=== PATIENT | male | born 1960 | race Caucasian/White ===

== ENCOUNTER 2021-03-06 11:33 | Emergency (ER) | payer OTHER ==
[2021-03-06] MEDS ORDERED: Lidocaine 1% 30 ML SDV INJECT ONE (12:10)
[2021-03-06] MEDS ORDERED: Lidocaine 1% 30 ML SDV ONE (12:22)
--- NOTE | 2021-03-06 19:14 | EDM.PDOC ---
ED HPI GENERAL MEDICAL PROBLEM - General Chief Complaint: Laceration Time Seen by Provider: 03/06/21 11:51 Source of Information: Reports: Patient History Limitations: Reports: No Limitations - History of Present Illness INITIAL COMMENTS - FREE TEXT/NARRATIVE: Pt. states that he was reaching under his table saw when he sustained a laceration between the 2nd and 3rd MCP joints of R hand. Pt. states that this happened just prior to coming to the hospital. Tetanus is up to date. Denies any injury elsewhere. Denies any decreased ROM to the joints of the had. Denies any numbness/tingling distal to the area of injury. Onset: Today Onset Date: 03/06/21 Location: Reports: Upper Extremity, Right Improves with: Reports: Rest Worsens with: Reports: Movement - Related Data Allergies Allergy/AdvReac Type Severity Reaction Status Date / Time metronidazole Allergy Rash Verified 03/06/21 12:41 Home Meds: Home Meds lisinopriL [Lisinopril] 20 mg PO DAILY 03/06/21 [History] Past Medical History Cardiovascular History: Reports: Hypertension Social & Family History - Tobacco Use Tobacco Use Status *Q: Never Tobacco User ED ROS GENERAL - Review of Systems Review Of Systems: See Below Constitutional: Reports: No Symptoms HEENT: Reports: No Symptoms Respiratory: Reports: No Symptoms Cardiovascular: Reports: No Symptoms Endocrine: Reports: No Symptoms GI/Abdominal: Reports: No Symptoms : Reports: No Symptoms Musculoskeletal: Reports: Other (see HPI). Denies: Joint Pain Skin: Reports: Other (See HPI) Neurological: Denies: Numbness, Paresthesia Psychiatric: Reports: No Symptoms Hematologic/Lymphatic: Reports: No Symptoms Immunologic: Reports: No Symptoms ED EXAM, SKIN/RASH Exam: See Below Exam Limited By: No Limitations General Appearance: Alert, WD/WN, No Apparent Distress Extremities: Other (4.5 cm laceration between MCP joints of R hand. No obvious injury noted to underlying structures. No joint capsule injury noted.) ED SKIN PROCEDURES - Laceration/Wound Repair Right Dorsal Hand Appearance: Subcutaneous, Irregular, Mildly Contaminated Distal NVT: Neuro & Vascular Intact, No Tendon Injury Anesthetic Type: Local Local Anesthesia - Lidocaine (Xylocaine): 1% Plain Local Anesthetic Volume: 5cc Skin Prep: Chlorhexidine (Hibiciens), Saline Saline Irrigation (cc's): 1,000 Exploration/Debridement/Repair: Wound Explored, Moderate Debridement, Wound Margins Revised Closed with: Sutures Lac/Wound length In cm: 4.5 Suture Size: 4-0 # of Sutures: 6 Suture Type: Interrupted Suture Size: 4-0 # of Sutures: 1 Repaired with: Vicryl Course - Vital Signs Last Recorded V/S: Last Vital Signs Temp 36.9 C 03/06/21 11:37 Pulse 80 03/06/21 11:37 Resp 18 03/06/21 11:37 BP 116/81 03/06/21 11:37 Pulse Ox 96 03/06/21 11:37 - Orders/Labs/Meds Meds: Medications Discontinued Medications Generic Name Dose Route Start Last Admin Trade Name Frengozi PRN Reason Stop Dose Admin Lidocaine HCl 30 ml 03/06/21 12:10 03/06/21 12:15 Lidocaine 1% 30 Ml Sdv INJECT 03/06/21 12:11 30 ml ONETIME ONE Administration Lidocaine HCl Confirm 03/06/21 12:22 03/06/21 13:05 Lidocaine 1% 30 Ml Sdv Administered 03/06/21 12:23 Not Given Dose 30 ml .ROUTE .STK-MED ONE Departure - Departure Time of Disposition: 13:00 Disposition: Home, Self-Care 01 Clinical Impression: Laceration - Discharge Information Instructions: Laceration Care, Adult Referrals: Ines Angelo MD [Primary Care Provider] - Forms: ED Department Discharge Additional Instructions: Keep dry for 24 hours. Keep dressing on if you experience some oozing around the sutures, or if you anticipate the area getting dirty. Otherwise, keep the area open to air as much as possible. Sutures can be removed at [facility] in 12 days. Return to ER if you have any redness, swelling, or discharge from the area. Sepsis Event Note (ED) - Evaluation Sepsis Screening Result: No Definite Risk - Focused Exam Vital Signs: Vital Signs Temp Pulse Resp BP Pulse Ox 03/06/21 11:37 36.9 C 80 18 116/81 96 - Problem List Review Problem List Initiated/Reviewed/Updated: Yes - Assessment/Plan Plan: Keep dry for 24 hours. Keep dressing on if you experience some oozing around the sutures, or if you anticipate the area getting dirty. Otherwise, keep the area open to air as much as possible. Sutures can be removed at [facility] in 12 days. Return to ER if you have any redness, swelling, or discharge from the area.
== END 2021-03-06 12:58 | disposition home or self-care (01) ==
LOC: VM.ED 11:33
DX: S61.411A Laceration without foreign body of right hand, initial encounter (principal); I10 Essential (primary) hypertension; Z88.8 Allergy status to other drugs, medicaments and biological substances; Z79.899 Other long term (current) drug therapy; W27.0XXA Contact with workbench tool, initial encounter
CPT/HCPCS: 12002; 99282-25; 99283

== ENCOUNTER 2023-09-29 08:04 | Day surgery (SDC) | payer OTHER ==
[~2023-09-29 08:04] MED LIST: Lactated Ringers 1,000 ML IV SCH
[2023-09-29] MEDS ORDERED: Propofol 200 MG/20 ML SDV ONE (10:14)
[2023-09-29] MEDS ORDERED: fentaNYL 100 MCG/2 ML SDV ONE (10:14)
== END 2023-09-29 11:40 | disposition home or self-care (01) ==
LOC: VM.SDS 08:04
PROVIDERS: ATTEND Student in an Organized Health Care Education/Training Program
DX: K29.50 Unspecified chronic gastritis without bleeding (principal); L53.9 Erythematous condition, unspecified; Z79.899 Other long term (current) drug therapy; Z98.890 Other specified postprocedural states; Z88.5 Allergy status to narcotic agent; I10 Essential (primary) hypertension
CPT/HCPCS: 00731; J2704; J3010; J7120

== ENCOUNTER 2024-12-12 08:02 | Emergency (ER) | payer OTHER ==
[2024-12-12 09:13] LABS: BASOPHILS PERCENT AUTO 0.2 % (0.2-1.2); EOSINOPHILS ABSOLUTE AUTO 0.1 x10^3/uL (0.0-0.5); EOSINOPHILS PERCENT AUTO 0.7 % (0.0-4.0); HEMATOCRIT 40.2 % (40.0-52.0); HEMOGLOBIN 13.9 g/dL (14.0-18.0); IMMATURE GRAN ABSOLUTE AUTO 0.02 x10^3/uL (0.00-0.07); LYMPHOCYTES ABSOLUTE AUTO 1.1 x10^3/uL (1.0-4.8); LYMPHOCYTES PERCENT AUTO 12.2 % (25.0-50.0); MEAN CORPUSCULAR HEMOGLOBIN 32.2 pg (26.0-32.0); MEAN CORPUSCULAR HGB CONC 34.6 g/dL (32.0-36.0); MEAN CORPUSCULAR VOLUME 93.1 fL (78.0-93.0); MONOCYTES ABSOLUTE AUTO 0.6 x10^3/uL (0.0-0.8); MONOCYTES PERCENT AUTO 7.1 % (2.0-11.0); NEUTROPHILS ABSOLUTE AUTO 6.8 x10^3/uL (1.8-7.7); NEUTROPHILS PERCENT AUTO 79.6 % (50.0-80.0); PLATELET COUNT,PLT 203 x10^3/uL (130-400); RED BLOOD CELL COUNT 4.32 x10^6/uL (4.5-6.0); WHITE BLOOD CELL COUNT,WBC 8.6 x10^3/uL (4.0-10.0)
[2024-12-12] MEDS ORDERED: Lactated Ringers 1,000 ML IV SCH (09:15)
[2024-12-12 09:19] LABS: PROTHROMBIN TIME 10.7 SEC (9.6-12.0)
[2024-12-12 09:28] LABS: BLOOD UREA NITROGEN,BUN 13 mg/dL (7-18); CALCIUM 8.9 mg/dL (8.5-10.1); CARBON DIOXIDE,CO2 30 mmol/L (21-32); CHLORIDE,CL 94 mmol/L (98-107); CREATININE 1.2 mg/dL (0.70-1.30); GLUCOSE RANDOM 119 mg/dL (70-99); MAGNESIUM 1.7 mg/dL (1.8-2.4); POTASSIUM,K 4.2 mmol/L (3.5-5.1); SODIUM,NA 133 mmol/L (136-145)
[2024-12-12 09:29] LABS: ANION GAP 13.2 mmol/L (5-15); ESTIMATED GFR 67 mL/min (>=60)
[2024-12-12] MEDS: Acetaminophen 500 MG Tab PO ONE (09:34)
[2024-12-12] MEDS: Magnesium Oxide 400 MG Tab PO ONE (09:40)
[2024-12-12 09:53] LABS: A/G RATIO 0.85; ALBUMIN 3.4 g/dL (3.4-5.0); BILIRUBIN DIRECT 0.11 mg/dL (0.00-0.20); BILIRUBIN INDIRECT 0.39; BILIRUBIN TOTAL 0.5 mg/dL (0.2-1.0); PROTEIN TOTAL,TP 7.4 g/dL (6.4-8.2)
== END 2024-12-12 10:10 | disposition home or self-care (01) ==
LOC: VM.ED 08:02
DX: R05.9 Cough, unspecified (principal); B97.4 Respiratory syncytial virus as the cause of diseases classified elsewhere; R55 Syncope and collapse; D64.9 Anemia, unspecified; E83.42 Hypomagnesemia; I10 Essential (primary) hypertension; Z88.8 Allergy status to other drugs, medicaments and biological substances; Z79.899 Other long term (current) drug therapy
CPT/HCPCS: 71046; 80048; 80076; 83735; 84484; 85025; 85610; 87428-QW; 99285; A9270-GY

== ENCOUNTER 2025-04-21 06:42 | Emergency (ER) | payer OTHER, MEDICARE ==
[2025-04-21] MEDS: Sodium Chloride 0.9% 1,000 ML IV ONE (07:02)
[2025-04-21 07:11] LABS: BASOPHILS PERCENT AUTO 0.2 % (0.2-1.2); EOSINOPHILS ABSOLUTE AUTO 0.1 x10^3/uL (0.0-0.5); HEMATOCRIT 42.8 % (40.0-52.0); HEMOGLOBIN 14.2 g/dL (14.0-18.0); IMMATURE GRAN ABSOLUTE AUTO 0.01 x10^3/uL (0.00-0.07); LYMPHOCYTES ABSOLUTE AUTO 1.4 x10^3/uL (1.0-4.8); LYMPHOCYTES PERCENT AUTO 17.5 % (25.0-50.0); MEAN CORPUSCULAR HEMOGLOBIN 31.1 pg (26.0-32.0); MEAN CORPUSCULAR HGB CONC 33.2 g/dL (32.0-36.0); MEAN CORPUSCULAR VOLUME 93.7 fL (78.0-93.0); MONOCYTES ABSOLUTE AUTO 0.4 x10^3/uL (0.0-0.8); MONOCYTES PERCENT AUTO 5.1 % (2.0-11.0); NEUTROPHILS ABSOLUTE AUTO 6.2 x10^3/uL (1.8-7.7); NEUTROPHILS PERCENT AUTO 76.1 % (50.0-80.0); PLATELET COUNT,PLT 220 x10^3/uL (130-400); RED BLOOD CELL COUNT 4.57 x10^6/uL (4.5-6.0); WHITE BLOOD CELL COUNT,WBC 8.1 x10^3/uL (4.0-10.0)
[2025-04-21 07:46] LABS: ALANINE AMINOTRANSFERASE,ALT 23 U/L (16-63); ALBUMIN 3.7 g/dL (3.4-5.0); ALKALINE PHOSPHATASE 90 U/L (46-116); ANION GAP 15.8 mmol/L (5-15); ASPARTATE AMNIOTRANSFERASE,AST 14 U/L (15-37); BLOOD UREA NITROGEN,BUN 15 mg/dL (7-18); CALCIUM 9.2 mg/dL (8.5-10.1); CARBON DIOXIDE,CO2 25 mmol/L (21-32); CHLORIDE,CL 99 mmol/L (98-107); CREATININE 1.1 mg/dL (0.70-1.30); ESTIMATED GFR 75 mL/min (>=60); GLUCOSE RANDOM 150 mg/dL (70-99); MAGNESIUM 1.8 mg/dL (1.8-2.4); POTASSIUM,K 3.8 mmol/L (3.5-5.1); PROTEIN TOTAL,TP 7.4 g/dL (6.4-8.2); SODIUM,NA 136 mmol/L (136-145)
[2025-04-21 08:11] LABS: APPEARANCE,URINE CLEAR (CLEAR); BILIRUBIN,URINE NEGATIVE (NEGATIVE); COLOR,URINE YELLOW (YELLOW); GLUCOSE,URINE NEGATIVE (NEGATIVE); KETONES,URINE NEGATIVE (NEGATIVE); LEUKOCYTE ESTERASE,URINE NEGATIVE (NEGATIVE); NITRITE,URINE NEGATIVE (NEGATIVE); OCCULT BLOOD,URINE NEGATIVE (NEGATIVE); PH,URINE 6.5 (5.0-8.0); PROTEIN,URINE NEGATIVE (NEGATIVE); UROBILINOGEN,URINE 0.2 EU/dL (0.2)
== END 2025-04-21 09:39 | disposition home or self-care (01) ==
LOC: VM.ED 06:42
DX: R55 Syncope and collapse (principal); I10 Essential (primary) hypertension; Z79.899 Other long term (current) drug therapy; Z88.8 Allergy status to other drugs, medicaments and biological substances
CPT/HCPCS: 36415; 70450; 80053; 81003; 83735; 84484; 85025; 93005; 93010; 96360; 99284; 99285-25; J7030